=== PATIENT | male | born 1955 | race American Indian/Alaskan Native ===

== ENCOUNTER 2019-07-09 08:55 | Outpatient (CLI) | payer MEDICARE ==
--- NOTE | 2019-07-09 09:48 | XRay Report ---
CHEST 2 VIEWS INDICATION / CLINICAL INFORMATION: R13.10 DYSPHAGIA. Heartburn and indigestion for 3 months. COMPARISON: None available. FINDINGS: SUPPORT DEVICES: None. HEART / MEDIASTINUM: The heart size and pulmonary vasculature are normal. There is calcification in t he aortic arch without aneurysm. LUNGS / PLEURA: No significant pulmonary or pleural abnormality. No pneumothorax. ADDITIONAL FINDINGS: Mild elevation of the right hemidiaphragm anteriorly is likely related to partia l eventration. IMPRESSION: No acute findings. Signer Name: Giuseppe Vicente MD Signed: 07/09/2019 9:44 AM Workstation Name: [id number]
--- NOTE | 2019-07-09 10:18 | Fluoroscopy Report ---
Barium swallow Indication: R13.10) DYSPHAGIA. Patient coughs every time he eats or drinks for the last 2 months Technique: Single and double contrast barium technique utilized to evaluate the esophagus. Findings: To begin the exam, swallowing was evaluated in the lateral position under direct fluorosco py. Swallowing was normal. No mucosal irregularity, mass, mass effect, or critical stenosis. There were abnormal tertiary cont ractions as seen with dysmotility. There was also moderate gastroesophageal reflux. Impression: Esophageal dysmotility with moderate reflux. Fluoroscopic time: 1.6 minutes Number of fluoroscopic images: 17 Signer Name: Ender Dutton MD Signed: 07/09/2019 10:14 AM Workstation Name: [id number]
== END 2019-07-09 08:56 | disposition home or self-care (01) ==
LOC: FLUORO 08:55
PROVIDERS: ATTEND Otolaryngology
DX: K21.9 Gastro-esophageal reflux disease without esophagitis (principal); I70.0 Atherosclerosis of aorta
CPT/HCPCS: 71046; 74220